=== PATIENT | male | born 1960 | race Caucasian/White ===

== ENCOUNTER 2019-01-25 19:06 | Inpatient (IN) | payer OTHER ==
[~2019-01-25] VITALS: Ht 172.7 cm; Wt 74.8 kg
[~2019-01-25 19:06] MED LIST: ASPIR-LOW81 MG PO; ATENOLOL50 MG PO; ATORVASTATIN CA40 MG PO; AVALIDE 150/12.1 TAB PO; CLONAZEPAM1 MG PO; DOCUSATE SODIU100 MG PO; OMEPRAZOLE20 M1 PO; PERCOCET 5/3251 TAB PO; PLAVIX75 MG PO
[2019-01-25] MEDS ORDERED: AVALIDE 300-121 EACH (19:32)
[2019-01-25] MEDS ORDERED: ZANTAC300 MG (19:33)
[2019-01-25] MEDS ORDERED: TOPROL XL100 M1 (19:33)
== END 2019-02-12 14:00 | disposition home or self-care (01) | DRG 330 ==
LOC: ER 19:06 → O/R 22:50 → SURG 22:50
PROVIDERS: ADMIT Surgery
PROC: BW21ZZZ Computerized Tomography (CT Scan) of Abdomen and Pelvis (ICD-10-PCS; 2019-01-25)
PROC: 0DQH0ZZ Repair Cecum, Open Approach (ICD-10-PCS; 2019-01-26)
PROC: 0DTJ0ZZ Resection of Appendix, Open Approach (ICD-10-PCS; principal; 2019-01-26 07:00)
DX: K35.890 Other acute appendicitis without perforation or gangrene (principal); K91.72 Accidental puncture and laceration of a digestive system organ or structure during other procedure; M50.00 Cervical disc disorder with myelopathy, unspecified cervical region; N17.8 Other acute kidney failure; K91.89 Other postprocedural complications and disorders of digestive system; K56.7 Ileus, unspecified; J90 Pleural effusion, not elsewhere classified; R18.8 Other ascites; T81.43XA Infection following a procedure, organ and space surgical site, initial encounter; E78.49 Other hyperlipidemia; K66.0 Peritoneal adhesions (postprocedural) (postinfection); I12.9 Hypertensive chronic kidney disease with stage 1 through stage 4 chronic kidney disease, or unspecified chronic kidney disease; N18.1 Chronic kidney disease, stage 1; N40.0 Benign prostatic hyperplasia without lower urinary tract symptoms; Z86.73 Personal history of transient ischemic attack (TIA), and cerebral infarction without residual deficits

== ENCOUNTER 2022-12-22 09:10 | Emergency (ER) | payer OTHER ==
[~2022-12-22] VITALS: Ht 172.7 cm; Wt 74.8 kg
[~2022-12-22 09:10] MED LIST changes: +AVALIDE 300-121 EACH; +TOPROL XL100 M1; +ZANTAC300 MG
== END 2022-12-22 16:28 | disposition home or self-care (01) ==
LOC: ER 09:10
DX: K57.30 Diverticulosis of large intestine without perforation or abscess without bleeding (principal); K76.0 Fatty (change of) liver, not elsewhere classified; K80.20 Calculus of gallbladder without cholecystitis without obstruction